=== PATIENT | male | born 1940 | race Caucasian/White ===

== ENCOUNTER 2017-11-17 21:59 | Inpatient (IN) | payer OTHER, BC ==
[~2017-11-17] VITALS: Ht 160 cm; Wt 85.3 kg
[~2017-11-17 21:59] MED LIST: FOL1 PO; LIO10 PO; LOP600 PO; NEU300 PO; PRE10 PO; ULT50 PO; VITD PO; ZYL300 PO
[2017-11-17 22:05] VITALS: Ht 160 cm; Wt 85.3 kg
[2017-11-17 23:05] LABS: BASOPHIL % 0.6 % (0-2); PLATELET COUNT 152 x10^3mcL (130-400); RED CELL DISTRIBUTION WIDTH 13.9 % (11.5-14.5)
[2017-11-17 23:16] LABS: CALCIUM 9.1 mg/dL (8.5-10.1); CHLORIDE SERUM 102 mmol/L (98-107); CREATININE SERUM 1.4 mg/dL (0.7-1.3); GLUCOSE SERUM 114 mg/dL (74-106); POTASSIUM SERUM 3.8 mmol/L (3.5-5.1); SODIUM SERUM 136 mmol/L (136-145)
[2017-11-17 23:20] LABS: ALBUMIN 3.9 g/dL (3.4-5.0); ALKALINE PHOSPHATASE 123 U/L (46-116); ALT/SGPT 14 U/L (16-63); AST/SGOT 14 U/L (15-37); BILIRUBIN TOTAL 0.5 mg/dL (0.20-1.00); TOTAL PROTEIN, SERUM 7.9 g/dL (6.4-8.2)
[2017-11-17 23:21] LABS: microscopic required? YES; urine erythrocyte 2+ (NEGATIVE)
[2017-11-17 23:37] LABS: AMPHETAMINE QUAL UR NONE DETECTED (NEG <=1000)
[2017-11-17] MEDS ORDERED: SIMVASTATIN10 M1 PO (23:57)
[2017-11-17] MEDS ORDERED: COZAAR25 M1 PO (23:57)
[2017-11-18] VITALS (7 sets, daily range): BP systolic 110–144; BP diastolic 55–77
[2017-11-18 02:40] LABS: MAGNESIUM 2.1 mg/dL (1.8-2.4); PHOSPHOROUS 3.8 mg/dL (2.5-4.9)
[2017-11-18 02:49] LABS: FREE T4 1.26 ng/dL (0.76-1.46); FREE THYROXINE INDEX 2.1 ug/dL (1.4-4.5); T4(THYROXINE) 6.3 ug/dL (4.7-13.3)
[2017-11-18 02:50] LABS: T3 TOTAL 0.86 ng/mL
[2017-11-18 06:36] LABS: BASOPHIL % 0.4 % (0-2); PLATELET COUNT 149 x10^3mcL (130-400); RED CELL DISTRIBUTION WIDTH 13.8 % (11.5-14.5)
[2017-11-18 07:09] LABS: CARBON DIOXIDE 23.4 mmol/L (21-32); CHLORIDE SERUM 110 mmol/L (98-107); GLUCOSE SERUM 102 mg/dL (74-106); POTASSIUM SERUM 3.7 mmol/L (3.5-5.1); SODIUM SERUM 146 mmol/L (136-145)
[2017-11-19 05:42] VITALS: BP 142/77
[2017-11-19 06:52] LABS: BASOPHIL % 0.5 % (0-2); PLATELET COUNT 141 x10^3mcL (130-400); RED CELL DISTRIBUTION WIDTH 13.9 % (11.5-14.5)
[2017-11-19 06:53] LABS: CALCIUM 8.6 mg/dL (8.5-10.1); CARBON DIOXIDE 24.1 mmol/L (21-32); CHLORIDE SERUM 111 mmol/L (98-107); CREATININE SERUM 0.8 mg/dL (0.7-1.3); GLUCOSE SERUM 91 mg/dL (74-106); POTASSIUM SERUM 3.7 mmol/L (3.5-5.1); SODIUM SERUM 146 mmol/L (136-145)
[2017-11-19 09:07] VITALS: BP 171/78
[2017-11-19 13:50] VITALS: BP 136/76
[2017-11-19 18:30] VITALS: BP 106/61
[2017-11-19 20:59] VITALS: BP 130/68
[2017-11-20 05:28] VITALS: BP 157/68
[2017-11-20 06:59] LABS: BASOPHIL % 0.5 % (0-2); PLATELET COUNT 137 x10^3mcL (130-400); RED CELL DISTRIBUTION WIDTH 14.1 % (11.5-14.5)
[2017-11-20 07:14] LABS: CALCIUM 9.2 mg/dL (8.5-10.1); CHLORIDE SERUM 111 mmol/L (98-107); CREATININE SERUM 0.8 mg/dL (0.7-1.3); GLUCOSE SERUM 99 mg/dL (74-106); POTASSIUM SERUM 3.9 mmol/L (3.5-5.1); SODIUM SERUM 143 mmol/L (136-145)
[2017-11-20 09:49] VITALS: BP 159/81
[2017-11-20 12:21] VITALS: BP 145/74
[2017-11-20] MEDS ORDERED: DIFLUCAN100 MG PO (13:17)
[2017-11-20] MEDS ORDERED: FLO4 PO (13:18)
[2017-11-20] MEDS ORDERED: VOL50 PO (13:19)
[2017-11-20] MEDS ORDERED: ALLOPURINOL300 M1 PO (13:21)
[2017-11-20] MEDS ORDERED: LEVAQUIN750 MG PO (13:25)
[2017-11-20] MEDS ORDERED: LAC PO (13:26)
[2017-11-20] MEDS ORDERED: RES15 PO (13:56)
[2017-11-20 14:26] VITALS: BP 145/74
== END 2017-11-20 15:57 | disposition home or self-care (01) | DRG 689 ==
LOC: ED 21:59 → DU 11-18 01:08
PROVIDERS: Emergency Medicine; Family Medicine
DX: N39.0 Urinary tract infection, site not specified (principal); G93.41 Metabolic encephalopathy; N17.0 Acute kidney failure with tubular necrosis; M06.9 Rheumatoid arthritis, unspecified; M10.9 Gout, unspecified; D16.21 Benign neoplasm of long bones of right lower limb; N20.0 Calculus of kidney; R74.0 Nonspecific elevation of levels of transaminase and lactic acid dehydrogenase [LDH]; I10 Essential (primary) hypertension; B35.1 Tinea unguium; M24.575 Contracture, left foot; M24.574 Contracture, right foot; Z68.30 Body mass index [BMI] 30.0-30.9, adult; Z91.041 Radiographic dye allergy status; Z87.442 Personal history of urinary calculi; Z79.52 Long term (current) use of systemic steroids; Z66 Do not resuscitate
CPT/HCPCS: 36600; 83880; 84439; 87046; 87046-59; 97110-GP; G0480; J0696; J1885; J2310; J7030; Q0092; Q0163